=== PATIENT | male | born 1990 | race Caucasian/White ===

== ENCOUNTER 2018-06-24 17:46 | Emergency (ER) | payer OTHER, MEDICAID, SELFPAY ==
[2018-06-24 17:57] VITALS: BP 133/88; PULSE 88; RESP 24; TEMP 36.2; O2SAT 100
[2018-06-24] MEDS: LORazepam 2 MG/ML SYRINGE 1 MG IM (18:51)
[2018-06-24 18:54] LABS: Urine Amphetamines Negative (Negative); Urine Barbiturates Negative (Negative); Urine Benzodiazepines Negative (Negative); Urine Cocaine Negative (Negative); Urine MDMA Negative (Negative); Urine Methadone Negative (Negative); Urine Methamphetamines Negative (Negative); Urine Morphine/Opi cutoff 2000 Negative (Negative); Urine Oxycodone Negative (Negative); Urine Phencyclidine Negative (Negative); Urine Tetrahydrocannabinol Positive (Negative); Urine Tricyclic Antidepressant Negative (Negative)
--- NOTE | 2018-06-24 18:56 | ED.ANXIETY ---
HPI - Anxiety <DANNIE Shepard- - Last Filed: 06/24/18 23:20> General Chief Complaint: Anxiety Stated Complaint: STATES EXTREME ANXIETY Time Seen by Provider: 06/24/18 18:14 Source: patient and family Mode of arrival: ambulatory Limitations: no limitations History of Present Illness HPI narrative: patient presents with chief complaint of severe anxiety. He states he is very anxious says he is going to be killed by a gang. He is worried that the gang is targeting his mother as well. He believes that he will be killed between and July 07. He also endorses being unable to sleep for 4 days, not eating and significant weight loss. Mother states he is very paranoid that there is somebody out to get him. Reported history of Asperger's and alcoholism, but patient denies any drugs or alcohol use at this point time. He denies any hallucinations, but states he is listening to his gut instinct. patient denies any overt pain. Denies any allergies to medications. Related Data Home Medications Medication Instructions Recorded Confirmed citalopram 10 mg PO QDAY #0 04/17/17 Previous Rx's Medication Instructions Recorded chlordiazepoxide HCl 25 mg PO TID 6 Days #0 cap 10/01/17 Allergies Allergy/AdvReac Type Severity Reaction Status Date / Time No Known Drug Allergies Allergy Verified 06/24/18 19:06 Review of Systems <AMANDA Shepard - Last Filed: 06/24/18 23:20> Review of Systems GENERAL: Denies chills, fatigue, malaise, fever, sweats. HEENT: Denies sinus pain, ear pain, sore throat, difficulty swallowing, dizziness. RESPIRATORY: Denies dyspnea, cough, wheezing, hemoptysis, sputum. CARDIOVASCULAR: Denies chest pain, palpitations, orthopnea, edema, GASTROINTESTINAL: Denies nausea, vomiting, abdominal pain, diarrhea, constipation, melena. : Denies dysuria, frequency, incontinence, hematuria, urinary retention. MUSCULOSKELETAL: denies weakness, joint pain, or bony pain SKIN: Denies rash, skin lesions, or other NEUROLOGIC: Denies weakness, headache, numbness, change in speech, confusion, seizures, incoordination. PSYCHIATRIC: See HPI 12 point review of systems is negative except for those stated above Exam <GUSTAVO Shepard - Last Filed: 06/24/18 23:20> Narrative Exam Narrative: GENERAL: patient sitting in bed. Sitting very upright observant HEAD: Atraumatic. Normocephalic. No temporal or scalp tenderness. EYES: Pupils equal round and reactive. Extraocular motions intact. No scleral icterus. No injection or drainage. ENT: Nose without bleeding, purulent drainage or septal hematoma. Throat without erythema, tonsillar hypertrophy or exudate. Uvula midline. Airway patent. NECK: Trachea midline. No JVD or lymphadenopathy. Supple, nontender, no meningeal signs. CARDIOVASCULAR: Regular rate and rhythm without murmurs, gallops, or rubs. RESPIRATORY: Clear to auscultation. Breath sounds equal bilaterally. No wheezes, rales, or rhonchi. GASTROINTESTINAL: Abdomen soft, non-tender, nondistended. No hepato-splenomegaly, or palpable masses. No guarding. EXTREMITIES: No clubbing, cyanosis, or edema. No joint tenderness, effusion, or edema noted. BACK: Nontender without deformity or crepitance. No flank tenderness. NEURO: AOx3. Hyperverbal. Tangential. Paranoid thoughts present. Patient states that a gang is coming around to kill him and his mother. SKIN: No rash or erythema. Initial Vital Signs Initial Vital Signs: Vital Signs Temperature 97.1 F L 06/24/18 17:57 Pulse Rate 88 06/24/18 17:57 Respiratory Rate 24 06/24/18 17:57 Blood Pressure 133/88 06/24/18 17:57 Pulse Oximetry 100 06/24/18 17:57 <Beau Hebert DO - Last Filed: 06/25/18 07:27> Initial Vital Signs Initial Vital Signs: Vital Signs Temperature 97.1 F L 06/24/18 17:57 Pulse Rate 88 06/24/18 17:57 Respiratory Rate 24 06/24/18 17:57 Blood Pressure 133/88 06/24/18 17:57 Pulse Oximetry 100 06/24/18 17:57 Course <DANNIE Shepard-BC - Last Filed: 06/24/18 23:20> Course Narrative: I checked on the patient several times throughout his stay in the emergency department. He gave me consent to speak with his mother regarding his concern done at any point time. He gave consent for the rest of the care team did speak to his mother. Orders Ordered: Discontinued Medications Lorazepam (Ativan) 1 mg IM NOW ONE Stop: 06/24/18 18:36 Last Admin: 06/24/18 18:51 Dose: 1 mg Lorazepam (Ativan) 1 mg IM NOW ONE Stop: 06/25/18 02:17 Last Admin: 06/25/18 02:19 Dose: 1 mg Consultations Consultation #1: [facility] states the patient has a bed secured at [facility]. I TA paperwork has been filled out by [facility]. Ambulance transportation is in the works. Time: 23:00 Vital Signs - 8 hr 06/24/18 17:57 Temperature 97.1 F L Pulse Rate 88 Respiratory Rate 24 Blood Pressure 133/88 Pulse Oximetry 100 <Beau Hebert DO - Last Filed: 06/25/18 07:27> Orders Ordered: Discontinued Medications Lorazepam (Ativan) 1 mg IM NOW ONE Stop: 06/24/18 18:36 Last Admin: 06/24/18 18:51 Dose: 1 mg Lorazepam (Ativan) 1 mg IM NOW ONE Stop: 06/25/18 02:17 Last Admin: 06/25/18 02:19 Dose: 1 mg Vital Signs - 8 hr 06/24/18 17:57 Temperature 97.1 F L Pulse Rate 88 Respiratory Rate 24 Blood Pressure 133/88 Pulse Oximetry 100 MDM - Anxiety <GUSTAVO Shepard - Last Filed: 06/24/18 23:20> Lab Data Result diagrams: 06/24/18 18:59 06/24/18 18:59 Lab Results 06/24/18 06/24/18 06/24/18 Range/Units 18:36 18:59 18:59 WBC 5.4 (4.5-11.0) X10^3/uL RBC 4.91 (4.5-5.9) X10^6/uL Hgb 15.5 (13.5-17.5) g/dL Hct 45.8 (41-53) % MCV 93.3 (80-100) fL MCH 31.5 (26-34) PG MCHC 33.8 (30-36) % RDW 12.8 (11.6-14.8) % Plt Count 218 (150-400) X10^3/uL Neut % (Auto) 70.6 (50-75) % Lymph % (Auto) 19.4 L (25-40) % [place] % (Auto) 9.3 (3-14) % Eos % (Auto) 0.4 L (2-4) % Baso % (Auto) 0.3 (0-2) % Neut # (Auto) 3800 (1349-4715) /uL Sodium 141 (137-145) mmol/L Potassium 4.3 (3.4-5.1) mmol/L Chloride 98 (98-107) mmol/L Carbon Dioxide 31 (22-32) mmol/L BUN 16 (9-20) mg/dL Creatinine 0.80 (0.66-1.25) mg/dL Estimated GFR > 60.0 (>60) mL/min BUN/Creatinine Ratio 20.0 (6-22) Glucose 97 (70-100) mg/dL Calcium 10.0 (8.4-10.2) mg/dL Total Bilirubin 1.1 (0.2-1.3) mg/dL AST 28 (17-59) IU/L ALT 35 (21-72) IU/L Alkaline Phosphatase 43 (38-126) U/L Total Protein 7.3 (6.3-8.2) g/dL Albumin 4.7 (3.5-5.0) g/dL Globulin 2.6 (1.7-4.1) g/dL Albumin/Globulin Ratio 1.8 (1.0-2.8) TSH (0.47-4.68) uIU/mL Salicylates < 1.0 (<20) mg/dL Urine Opiates Screen Negative (Negative) Ur Oxycodone Screen Negative (Negative) Urine Methadone Screen Negative (Negative) Acetaminophen < 10 L (10-30) ug/mL Ur Barbiturates Screen Negative (Negative) U Tricyclic Antidepress Negative (Negative) Ur Phencyclidine Scrn Negative (Negative) Ur Amphetamines Screen Negative (Negative) U Methamphetamines Scrn Negative (Negative) Ur MDMA Scrn (Ecstasy) Negative (Negative) U Benzodiazepines Scrn Negative (Negative) Urine Cocaine Screen Negative (Negative) U Marijuana (THC) Screen Positive H (Negative) Ethyl Alcohol < 10 mg/dL 06/24/18 Range/Units 18:59 WBC (4.5-11.0) X10^3/uL RBC (4.5-5.9) X10^6/uL Hgb (13.5-17.5) g/dL Hct (41-53) % MCV (80-100) fL MCH (26-34) PG MCHC (30-36) % RDW (11.6-14.8) % Plt Count (150-400) X10^3/uL Neut % (Auto) (50-75) % Lymph % (Auto) (25-40) % [place] % (Auto) (3-14) % Eos % (Auto) (2-4) % Baso % (Auto) (0-2) % Neut # (Auto) (4301-7395) /uL Sodium (137-145) mmol/L Potassium (3.4-5.1) mmol/L Chloride (98-107) mmol/L Carbon Dioxide (22-32) mmol/L BUN (9-20) mg/dL Creatinine (0.66-1.25) mg/dL Estimated GFR (>60) mL/min BUN/Creatinine Ratio (6-22) Glucose (70-100) mg/dL Calcium (8.4-10.2) mg/dL Total Bilirubin (0.2-1.3) mg/dL AST (17-59) IU/L ALT (21-72) IU/L Alkaline Phosphatase (38-126) U/L Total Protein (6.3-8.2) g/dL Albumin (3.5-5.0) g/dL Globulin (1.7-4.1) g/dL Albumin/Globulin Ratio (1.0-2.8) TSH 0.81 (0.47-4.68) uIU/mL Salicylates (<20) mg/dL Urine Opiates Screen (Negative) Ur Oxycodone Screen (Negative) Urine Methadone Screen (Negative) Acetaminophen (10-30) ug/mL Ur Barbiturates Screen (Negative) U Tricyclic Antidepress (Negative) Ur Phencyclidine Scrn (Negative) Ur Amphetamines Screen (Negative) U Methamphetamines Scrn (Negative) Ur MDMA Scrn (Ecstasy) (Negative) U Benzodiazepines Scrn (Negative) Urine Cocaine Screen (Negative) U Marijuana (THC) Screen (Negative) Ethyl Alcohol mg/dL Urine Dip Bedside Urine Glucose Negative Bedside Urine Bilirubin - Negative Bedside Urine Ketone ++ 40 Urine Specific [place] 1.030 Bedside Urine Occult Blood - Negative Bedside Urine pH 6.0 Bedside Urine Protein - Negative Bedside Urine Urobilinogen 1+ 2mg Bedside Urine Nitrite - Negative Bedside Urine Leukocytes - Negative Esterase MDM Narrative Medical decision making narrative: Patient presents with chief complaint paranoid delusional thinking. He is incredibly paranoid, commenting on aching that is out to kill him. Per [facility], he meets criteria for admission and was able to secure a bed at [facility]. Patient was medically cleared and had a negative tox other than THC. <Beau Hebert, DO - Last Filed: 06/25/18 07:27> Lab Data Lab Results 06/24/18 06/24/18 06/24/18 Range/Units 18:36 18:59 18:59 WBC 5.4 (4.5-11.0) X10^3/uL RBC 4.91 (4.5-5.9) X10^6/uL Hgb 15.5 (13.5-17.5) g/dL Hct 45.8 (41-53) % MCV 93.3 (80-100) fL MCH 31.5 (26-34) PG MCHC 33.8 (30-36) % RDW 12.8 (11.6-14.8) % Plt Count 218 (150-400) X10^3/uL Neut % (Auto) 70.6 (50-75) % Lymph % (Auto) 19.4 L (25-40) % [place] % (Auto) 9.3 (3-14) % Eos % (Auto) 0.4 L (2-4) % Baso % (Auto) 0.3 (0-2) % Neut # (Auto) 3800 (7010-9224) /uL Sodium 141 (137-145) mmol/L Potassium 4.3 (3.4-5.1) mmol/L Chloride 98 (98-107) mmol/L Carbon Dioxide 31 (22-32) mmol/L BUN 16 (9-20) mg/dL Creatinine 0.80 (0.66-1.25) mg/dL Estimated GFR > 60.0 (>60) mL/min BUN/Creatinine Ratio 20.0 (6-22) Glucose 97 (70-100) mg/dL Calcium 10.0 (8.4-10.2) mg/dL Total Bilirubin 1.1 (0.2-1.3) mg/dL AST 28 (17-59) IU/L ALT 35 (21-72) IU/L Alkaline Phosphatase 43 (38-126) U/L Total Protein 7.3 (6.3-8.2) g/dL Albumin 4.7 (3.5-5.0) g/dL Globulin 2.6 (1.7-4.1) g/dL Albumin/Globulin Ratio 1.8 (1.0-2.8) TSH (0.47-4.68) uIU/mL Salicylates < 1.0 (<20) mg/dL Urine Opiates Screen Negative (Negative) Ur Oxycodone Screen Negative (Negative) Urine Methadone Screen Negative (Negative) Acetaminophen < 10 L (10-30) ug/mL Ur Barbiturates Screen Negative (Negative) U Tricyclic Antidepress Negative (Negative) Ur Phencyclidine Scrn Negative (Negative) Ur Amphetamines Screen Negative (Negative) U Methamphetamines Scrn Negative (Negative) Ur MDMA Scrn (Ecstasy) Negative (Negative) U Benzodiazepines Scrn Negative (Negative) Urine Cocaine Screen Negative (Negative) U Marijuana (THC) Screen Positive H (Negative) Ethyl Alcohol < 10 mg/dL 06/24/18 Range/Units 18:59 WBC (4.5-11.0) X10^3/uL RBC (4.5-5.9) X10^6/uL Hgb (13.5-17.5) g/dL Hct (41-53) % MCV (80-100) fL MCH (26-34) PG MCHC (30-36) % RDW (11.6-14.8) % Plt Count (150-400) X10^3/uL Neut % (Auto) (50-75) % Lymph % (Auto) (25-40) % [place] % (Auto) (3-14) % Eos % (Auto) (2-4) % Baso % (Auto) (0-2) % Neut # (Auto) (2869-6791) /uL Sodium (137-145) mmol/L Potassium (3.4-5.1) mmol/L Chloride (98-107) mmol/L Carbon Dioxide (22-32) mmol/L BUN (9-20) mg/dL Creatinine (0.66-1.25) mg/dL Estimated GFR (>60) mL/min BUN/Creatinine Ratio (6-22) Glucose (70-100) mg/dL Calcium (8.4-10.2) mg/dL Total Bilirubin (0.2-1.3) mg/dL AST (17-59) IU/L ALT (21-72) IU/L Alkaline Phosphatase (38-126) U/L Total Protein (6.3-8.2) g/dL Albumin (3.5-5.0) g/dL Globulin (1.7-4.1) g/dL Albumin/Globulin Ratio (1.0-2.8) TSH 0.81 (0.47-4.68) uIU/mL Salicylates (<20) mg/dL Urine Opiates Screen (Negative) Ur Oxycodone Screen (Negative) Urine Methadone Screen (Negative) Acetaminophen (10-30) ug/mL Ur Barbiturates Screen (Negative) U Tricyclic Antidepress (Negative) Ur Phencyclidine Scrn (Negative) Ur Amphetamines Screen (Negative) U Methamphetamines Scrn (Negative) Ur MDMA Scrn (Ecstasy) (Negative) U Benzodiazepines Scrn (Negative) Urine Cocaine Screen (Negative) U Marijuana (THC) Screen (Negative) Ethyl Alcohol mg/dL Urine Dip Bedside Urine Glucose Negative Bedside Urine Bilirubin - Negative Bedside Urine Ketone ++ 40 Urine Specific [place] 1.030 Bedside Urine Occult Blood - Negative Bedside Urine pH 6.0 Bedside Urine Protein - Negative Bedside Urine Urobilinogen 1+ 2mg Bedside Urine Nitrite - Negative Bedside Urine Leukocytes - Negative Esterase Discharge Plan Departure Patient Disposition: Xfer Psychiatric [facility]osp Clinical Impression: Psychotic disorder Discharge Date/Time: 06/25/18 02:33 Interventions: ED Discharge Assessment Last Done: 06/25/18 02:33 <Beau Hebert DO - Last Filed: 06/25/18 07:27> Cosign ED Attending Teo Attestation: I was immediately available in the department for consultation. Documentation has been reviewed. I agree with assessment and plan.
--- NOTE | 2018-06-24 19:01 | ED_ITS ---
HPI - Anxiety <DANNIE Shepard- - Last Filed: 06/24/18 23:20> General Chief Complaint: Anxiety Stated Complaint: STATES EXTREME ANXIETY Time Seen by Provider: 06/24/18 18:14 Source: patient and family Mode of arrival: ambulatory Limitations: no limitations History of Present Illness HPI narrative: patient presents with chief complaint of severe anxiety. He states he is very anxious says he is going to be killed by a gang. He is worried that the gang is targeting his mother as well. He believes that he will be killed between and July 07. He also endorses being unable to sleep for 4 days, not eating and significant weight loss. Mother states he is very paranoid that there is somebody out to get him. Reported history of Asperger's and alcoholism, but patient denies any drugs or alcohol use at this point time. He denies any hallucinations, but states he is listening to his gut instinct. patient denies any overt pain. Denies any allergies to medications. Related Data Home Medications Medication Instructions Recorded Confirmed citalopram 10 mg PO QDAY #0 04/17/17 Previous Rx's Medication Instructions Recorded chlordiazepoxide HCl 25 mg PO TID 6 Days #0 cap 10/01/17 Allergies Allergy/AdvReac Type Severity Reaction Status Date / Time No Known Drug Allergies Allergy Verified 06/24/18 19:06 Review of Systems <AMANDA Shepard - Last Filed: 06/24/18 23:20> Review of Systems GENERAL: Denies chills, fatigue, malaise, fever, sweats. HEENT: Denies sinus pain, ear pain, sore throat, difficulty swallowing, dizziness. RESPIRATORY: Denies dyspnea, cough, wheezing, hemoptysis, sputum. CARDIOVASCULAR: Denies chest pain, palpitations, orthopnea, edema, GASTROINTESTINAL: Denies nausea, vomiting, abdominal pain, diarrhea, constipation, melena. : Denies dysuria, frequency, incontinence, hematuria, urinary retention. MUSCULOSKELETAL: denies weakness, joint pain, or bony pain SKIN: Denies rash, skin lesions, or other NEUROLOGIC: Denies weakness, headache, numbness, change in speech, confusion, seizures, incoordination. PSYCHIATRIC: See HPI 12 point review of systems is negative except for those stated above Exam <GUSTAVO Shepard - Last Filed: 06/24/18 23:20> Narrative Exam Narrative: GENERAL: patient sitting in bed. Sitting very upright observant HEAD: Atraumatic. Normocephalic. No temporal or scalp tenderness. EYES: Pupils equal round and reactive. Extraocular motions intact. No scleral icterus. No injection or drainage. ENT: Nose without bleeding, purulent drainage or septal hematoma. Throat without erythema, tonsillar hypertrophy or exudate. Uvula midline. Airway patent. NECK: Trachea midline. No JVD or lymphadenopathy. Supple, nontender, no meningeal signs. CARDIOVASCULAR: Regular rate and rhythm without murmurs, gallops, or rubs. RESPIRATORY: Clear to auscultation. Breath sounds equal bilaterally. No wheezes , rales, or rhonchi. GASTROINTESTINAL: Abdomen soft, non-tender, nondistended. No hepato-splenomegaly , or palpable masses. No guarding. EXTREMITIES: No clubbing, cyanosis, or edema. No joint tenderness, effusion, or edema noted. BACK: Nontender without deformity or crepitance. No flank tenderness. NEURO: AOx3. Hyperverbal. Tangential. Paranoid thoughts present. Patient states that a gang is coming around to kill him and his mother. SKIN: No rash or erythema. Initial Vital Signs Initial Vital Signs: Vital Signs Temperature 97.1 F L 06/24/18 17:57 Pulse Rate 88 06/24/18 17:57 Respiratory Rate 24 06/24/18 17:57 Blood Pressure 133/88 06/24/18 17:57 Pulse Oximetry 100 06/24/18 17:57 <Beau Hebert DO - Last Filed: 06/25/18 07:27> Initial Vital Signs Initial Vital Signs: Vital Signs Temperature 97.1 F L 06/24/18 17:57 Pulse Rate 88 06/24/18 17:57 Respiratory Rate 24 06/24/18 17:57 Blood Pressure 133/88 06/24/18 17:57 Pulse Oximetry 100 06/24/18 17:57 Course <DANNIE Shepard-BC - Last Filed: 06/24/18 23:20> Course Narrative: I checked on the patient several times throughout his stay in the emergency department. He gave me consent to speak with his mother regarding his concern done at any point time. He gave consent for the rest of the care team did speak to his mother. Orders Ordered: Discontinued Medications Lorazepam (Ativan) 1 mg IM NOW ONE Stop: 06/24/18 18:36 Last Admin: 06/24/18 18:51 Dose: 1 mg Lorazepam (Ativan) 1 mg IM NOW ONE Stop: 06/25/18 02:17 Last Admin: 06/25/18 02:19 Dose: 1 mg Consultations Consultation #1: [facility] states the patient has a bed secured at [facility]. I TA paperwork has been filled out by [facility]. Ambulance transportation is in the works. Time: 23:00 Vital Signs - 8 hr 06/24/18 17:57 Temperature 97.1 F L Pulse Rate 88 Respiratory Rate 24 Blood Pressure 133/88 Pulse Oximetry 100 <Beau Hebert DO - Last Filed: 06/25/18 07:27> Orders Ordered: Discontinued Medications Lorazepam (Ativan) 1 mg IM NOW ONE Stop: 06/24/18 18:36 Last Admin: 06/24/18 18:51 Dose: 1 mg Lorazepam (Ativan) 1 mg IM NOW ONE Stop: 06/25/18 02:17 Last Admin: 06/25/18 02:19 Dose: 1 mg Vital Signs - 8 hr 06/24/18 17:57 Temperature 97.1 F L Pulse Rate 88 Respiratory Rate 24 Blood Pressure 133/88 Pulse Oximetry 100 MDM - Anxiety <GUSTAVO Shepard - Last Filed: 06/24/18 23:20> Lab Data Result diagrams: 06/24/18 18:59 06/24/18 18:59 Lab Results 06/24/18 06/24/18 06/24/18 Range/Units 18:36 18:59 18:59 WBC 5.4 (4.5-11.0) X10^3/uL RBC 4.91 (4.5-5.9) X10^6/uL Hgb 15.5 (13.5-17.5) g/dL Hct 45.8 (41-53) % MCV 93.3 (80-100) fL MCH 31.5 (26-34) PG MCHC 33.8 (30-36) % RDW 12.8 (11.6-14.8) % Plt Count 218 (150-400) X10^3/uL Neut % (Auto) 70.6 (50-75) % Lymph % (Auto) 19.4 L (25-40) % [place] % (Auto) 9.3 (3-14) % Eos % (Auto) 0.4 L (2-4) % Baso % (Auto) 0.3 (0-2) % Neut # (Auto) 3800 (0475-7896) /uL Sodium 141 (137-145) mmol/L Potassium 4.3 (3.4-5.1) mmol/L Chloride 98 (98-107) mmol/L Carbon Dioxide 31 (22-32) mmol/L BUN 16 (9-20) mg/dL Creatinine 0.80 (0.66-1.25) mg/dL Estimated GFR > 60.0 (>60) mL/min BUN/Creatinine Ratio 20.0 (6-22) Glucose 97 (70-100) mg/dL Calcium 10.0 (8.4-10.2) mg/dL Total Bilirubin 1.1 (0.2-1.3) mg/dL AST 28 (17-59) IU/L ALT 35 (21-72) IU/L Alkaline Phosphatase 43 (38-126) U/L Total Protein 7.3 (6.3-8.2) g/dL Albumin 4.7 (3.5-5.0) g/dL Globulin 2.6 (1.7-4.1) g/dL Albumin/Globulin Ratio 1.8 (1.0-2.8) TSH (0.47-4.68) uIU/mL Salicylates < 1.0 (<20) mg/dL Urine Opiates Screen Negative (Negative) Ur Oxycodone Screen Negative (Negative) Urine Methadone Screen Negative (Negative) Acetaminophen < 10 L (10-30) ug/mL Ur Barbiturates Screen Negative (Negative) U Tricyclic Antidepress Negative (Negative) Ur Phencyclidine Scrn Negative (Negative) Ur Amphetamines Screen Negative (Negative) U Methamphetamines Scrn Negative (Negative) Ur MDMA Scrn (Ecstasy) Negative (Negative) U Benzodiazepines Scrn Negative (Negative) Urine Cocaine Screen Negative (Negative) U Marijuana (THC) Screen Positive H (Negative) Ethyl Alcohol < 10 mg/dL 06/24/18 Range/Units 18:59 WBC (4.5-11.0) X10^3/uL RBC (4.5-5.9) X10^6/uL Hgb (13.5-17.5) g/dL Hct (41-53) % MCV (80-100) fL MCH (26-34) PG MCHC (30-36) % RDW (11.6-14.8) % Plt Count (150-400) X10^3/uL Neut % (Auto) (50-75) % Lymph % (Auto) (25-40) % [place] % (Auto) (3-14) % Eos % (Auto) (2-4) % Baso % (Auto) (0-2) % Neut # (Auto) (5803-1890) /uL Sodium (137-145) mmol/L Potassium (3.4-5.1) mmol/L Chloride (98-107) mmol/L Carbon Dioxide (22-32) mmol/L BUN (9-20) mg/dL Creatinine (0.66-1.25) mg/dL Estimated GFR (>60) mL/min BUN/Creatinine Ratio (6-22) Glucose (70-100) mg/dL Calcium (8.4-10.2) mg/dL Total Bilirubin (0.2-1.3) mg/dL AST (17-59) IU/L ALT (21-72) IU/L Alkaline Phosphatase (38-126) U/L Total Protein (6.3-8.2) g/dL Albumin (3.5-5.0) g/dL Globulin (1.7-4.1) g/dL Albumin/Globulin Ratio (1.0-2.8) TSH 0.81 (0.47-4.68) uIU/mL Salicylates (<20) mg/dL Urine Opiates Screen (Negative) Ur Oxycodone Screen (Negative) Urine Methadone Screen (Negative) Acetaminophen (10-30) ug/mL Ur Barbiturates Screen (Negative) U Tricyclic Antidepress (Negative) Ur Phencyclidine Scrn (Negative) Ur Amphetamines Screen (Negative) U Methamphetamines Scrn (Negative) Ur MDMA Scrn (Ecstasy) (Negative) U Benzodiazepines Scrn (Negative) Urine Cocaine Screen (Negative) U Marijuana (THC) Screen (Negative) Ethyl Alcohol mg/dL Urine Dip Bedside Urine Glucose Negative Bedside Urine Bilirubin - Negative Bedside Urine Ketone ++ 40 Urine Specific [place] 1.030 Bedside Urine Occult Blood - Negative Bedside Urine pH 6.0 Bedside Urine Protein - Negative Bedside Urine Urobilinogen 1+ 2mg Bedside Urine Nitrite - Negative Bedside Urine Leukocytes - Negative Esterase MDM Narrative Medical decision making narrative: Patient presents with chief complaint paranoid delusional thinking. He is incredibly paranoid, commenting on aching that is out to kill him. Per [facility], he meets criteria for admission and was able to secure a bed at [facility]. Patient was medically cleared and had a negative tox other than THC. <Beau Hebert, DO - Last Filed: 06/25/18 07:27> Lab Data Lab Results 06/24/18 06/24/18 06/24/18 Range/Units 18:36 18:59 18:59 WBC 5.4 (4.5-11.0) X10^3/uL RBC 4.91 (4.5-5.9) X10^6/uL Hgb 15.5 (13.5-17.5) g/dL Hct 45.8 (41-53) % MCV 93.3 (80-100) fL MCH 31.5 (26-34) PG MCHC 33.8 (30-36) % RDW 12.8 (11.6-14.8) % Plt Count 218 (150-400) X10^3/uL Neut % (Auto) 70.6 (50-75) % Lymph % (Auto) 19.4 L (25-40) % [place] % (Auto) 9.3 (3-14) % Eos % (Auto) 0.4 L (2-4) % Baso % (Auto) 0.3 (0-2) % Neut # (Auto) 3800 (2952-1601) /uL Sodium 141 (137-145) mmol/L Potassium 4.3 (3.4-5.1) mmol/L Chloride 98 (98-107) mmol/L Carbon Dioxide 31 (22-32) mmol/L BUN 16 (9-20) mg/dL Creatinine 0.80 (0.66-1.25) mg/dL Estimated GFR > 60.0 (>60) mL/min BUN/Creatinine Ratio 20.0 (6-22) Glucose 97 (70-100) mg/dL Calcium 10.0 (8.4-10.2) mg/dL Total Bilirubin 1.1 (0.2-1.3) mg/dL AST 28 (17-59) IU/L ALT 35 (21-72) IU/L Alkaline Phosphatase 43 (38-126) U/L Total Protein 7.3 (6.3-8.2) g/dL Albumin 4.7 (3.5-5.0) g/dL Globulin 2.6 (1.7-4.1) g/dL Albumin/Globulin Ratio 1.8 (1.0-2.8) TSH (0.47-4.68) uIU/mL Salicylates < 1.0 (<20) mg/dL Urine Opiates Screen Negative (Negative) Ur Oxycodone Screen Negative (Negative) Urine Methadone Screen Negative (Negative) Acetaminophen < 10 L (10-30) ug/mL Ur Barbiturates Screen Negative (Negative) U Tricyclic Antidepress Negative (Negative) Ur Phencyclidine Scrn Negative (Negative) Ur Amphetamines Screen Negative (Negative) U Methamphetamines Scrn Negative (Negative) Ur MDMA Scrn (Ecstasy) Negative (Negative) U Benzodiazepines Scrn Negative (Negative) Urine Cocaine Screen Negative (Negative) U Marijuana (THC) Screen Positive H (Negative) Ethyl Alcohol < 10 mg/dL 06/24/18 Range/Units 18:59 WBC (4.5-11.0) X10^3/uL RBC (4.5-5.9) X10^6/uL Hgb (13.5-17.5) g/dL Hct (41-53) % MCV (80-100) fL MCH (26-34) PG MCHC (30-36) % RDW (11.6-14.8) % Plt Count (150-400) X10^3/uL Neut % (Auto) (50-75) % Lymph % (Auto) (25-40) % [place] % (Auto) (3-14) % Eos % (Auto) (2-4) % Baso % (Auto) (0-2) % Neut # (Auto) (3988-5390) /uL Sodium (137-145) mmol/L Potassium (3.4-5.1) mmol/L Chloride (98-107) mmol/L Carbon Dioxide (22-32) mmol/L BUN (9-20) mg/dL Creatinine (0.66-1.25) mg/dL Estimated GFR (>60) mL/min BUN/Creatinine Ratio (6-22) Glucose (70-100) mg/dL Calcium (8.4-10.2) mg/dL Total Bilirubin (0.2-1.3) mg/dL AST (17-59) IU/L ALT (21-72) IU/L Alkaline Phosphatase (38-126) U/L Total Protein (6.3-8.2) g/dL Albumin (3.5-5.0) g/dL Globulin (1.7-4.1) g/dL Albumin/Globulin Ratio (1.0-2.8) TSH 0.81 (0.47-4.68) uIU/mL Salicylates (<20) mg/dL Urine Opiates Screen (Negative) Ur Oxycodone Screen (Negative) Urine Methadone Screen (Negative) Acetaminophen (10-30) ug/mL Ur Barbiturates Screen (Negative) U Tricyclic Antidepress (Negative) Ur Phencyclidine Scrn (Negative) Ur Amphetamines Screen (Negative) U Methamphetamines Scrn (Negative) Ur MDMA Scrn (Ecstasy) (Negative) U Benzodiazepines Scrn (Negative) Urine Cocaine Screen (Negative) U Marijuana (THC) Screen (Negative) Ethyl Alcohol mg/dL Urine Dip Bedside Urine Glucose Negative Bedside Urine Bilirubin - Negative Bedside Urine Ketone ++ 40 Urine Specific [place] 1.030 Bedside Urine Occult Blood - Negative Bedside Urine pH 6.0 Bedside Urine Protein - Negative Bedside Urine Urobilinogen 1+ 2mg Bedside Urine Nitrite - Negative Bedside Urine Leukocytes - Negative Esterase Discharge Plan Departure Patient Disposition: Xfer Psychiatric Hosp Clinical Impression: Psychotic disorder Discharge Date/Time: 06/25/18 02:33 Interventions: ED Discharge Assessment Last Done: 06/25/18 02:33 <Beau Hebert DO - Last Filed: 06/25/18 07:27> Cosign ED Attending Teo Attestation: I was immediately available in the department for consultation. Documentation has been reviewed. I agree with assessment and plan.
[2018-06-24 19:13] LABS: Add Manual Diff / Slide Review NO; Basophils Percent Auto 0.3 % (0-2); Eosinophils Percent Auto 0.4 % (2-4); Hematocrit 45.8 % (41-53); Hemoglobin 15.5 g/dL (13.5-17.5); Lymphocytes Percent Auto 19.4 % (25-40); Mean Corpuscular HGB Conc 33.8 % (30-36); Mean Corpuscular Hemoglobin 31.5 PG (26-34); Mean Corpuscular Volume 93.3 fL (80-100); Monocytes Percent Auto 9.3 % (3-14); Neutrophils Absolute Auto 3800 /uL (3000-5900); Neutrophils Percent Auto 70.6 % (50-75); Platelet Count 218 X10^3/uL (150-400); Red Blood Cell Count 4.91 X10^6/uL (4.5-5.9); Red Cell Distribution Width 12.8 % (11.6-14.8); White Blood Cell Count 5.4 X10^3/uL (4.5-11.0)
[2018-06-24 19:33] LABS: Acetaminophen < 10 ug/mL (10-30); Alanine Aminotransferase 35 IU/L (21-72); Albumin 4.7 g/dL (3.5-5.0); Albumin Globulin Ratio 1.8 (1.0-2.8); Alkaline Phosphatase 43 U/L (38-126); Aspartate Aminotransferase 28 IU/L (17-59); Bilirubin Total 1.1 mg/dL (0.2-1.3); Blood Urea Nitrogen 16 mg/dL (9-20); Carbon Dioxide 31 mmol/L (22-32); Chloride 98 mmol/L (98-107); Estimated Glomerular Filt Rate > 60.0 mL/min (>60); Ethanol (ETOH) < 10 mg/dL; Globulin 2.6 g/dL (1.7-4.1); Glucose 97 mg/dL (70-100); HEMOLYSIS < 15 (0-50); Potassium 4.3 mmol/L (3.4-5.1); Sodium 141 mmol/L (137-145); Total Protein 7.3 g/dL (6.3-8.2)
[2018-06-24 19:36] LABS: Salicylate < 1.0 mg/dL (<20)
[2018-06-24 20:02] LABS: Thyroid Stimulating Hormone 0.81 uIU/mL (0.47-4.68)
--- NOTE | 2018-06-24 23:23 | PC.NURSE ---
Blue boxers, belt dresser, black shirt, brown pants, black socks, black shoes, black wallet, cell phone, chewing tobacco.
[2018-06-24 23:27] VITALS: BP 118/71; PULSE 74; RESP 17; O2SAT 100
[2018-06-25] MEDS: LORazepam 2 MG/ML SYRINGE 1 MG IM (02:19)
== END 2018-06-25 02:33 ==
PROVIDERS: Emergency Provider Nurse Practitioner Family
DX: F29 Unspecified psychosis not due to a substance or known physiological condition (principal)
CPT/HCPCS: 36415; 80053; 80305; 80320; 80329; 81003; 84443; 85025; 96372; 99283; G0480; J2060